=== PATIENT | female | born 1940 | race Caucasian/White ===

== ENCOUNTER → 2019-06-15 10:18 | Outpatient (CLI) | payer MEDICARE, SELFPAY ==
[2019-06-15 09:48] VITALS: BMI 34.2
[2019-06-15 12:38] LABS: ALB/GLOB Ratio 1.2 RATIO (0.9-2.4); AST(SGOT) 30 U/L (15-37); Alanine Aminotransfer ALT/SGPT 31 U/L (13-56); Albumin, Serum 4.1 g/dL (3.2-5.0); Alkaline Phosphatase 112 U/L (45-117); Anion Gap 8 (5-15); BUN 16 mg/dL (7-18); BUN/Creat Ratio 18.4 RATIO (10-20); Calcium,Total 9.3 mg/dL (8.5-10.1); Chloride 104 mmol/L (98-107); Cholesterol 170 mg/dL (200); Creatinine, Serum 0.87 mg/dL (0.55-1.02); EST Glomerular Filtration Rate 67 mL/min (>60); Est Glom Filt Rate - Afr Amer 81 mL/min (>60); Globulin 3.5 g/dL (2.2-4.2); Glucose 142 mg/dL (74-106); High Density Lipoprotein 52 mg/dL; Potassium 4.2 mmol/L (3.5-5.1); Protein, Total 7.6 g/dL (6.4-8.2); Sodium Level 138 mmol/L (136-145); Triglycerides 392 mg/dL; Uric Acid 4.7 mg/dL (2.6-6.0); Very Low Density Lipoprotein 78 mg/dL (5-40)
== END ==
PROVIDERS: Family Provider Family Medicine; PCP Family Medicine; Visit Provider Family Medicine
DX: E11.9 Type 2 diabetes mellitus without complications (principal); E78.5 Hyperlipidemia, unspecified; Z87.39 Personal history of other diseases of the musculoskeletal system and connective tissue
CPT/HCPCS: 36415; 80053; 80061; 84550

== ENCOUNTER → 2019-07-01 11:58 | Outpatient (CLI) | payer MEDICARE, SELFPAY ==
[2019-06-15 09:48] VITALS: BMI 34.2
--- NOTE | 2019-07-01 12:00 | BI_ITS ---
MAMMOGRAPHY - BILATERAL SCREENING 3-D TOMOSYNTHESIS REASON FOR EXAM: Female, 78 years old. BILAT SCREENING - FAM HX OF MOTHER POSSIBLY WITH BREAST CA, MAT COUSIN @ AGE LATE 40''S-50''S, and amp;amp; DAUGHTER @ AGE 57 - NO PREV SURG''S PERTINENT HISTORY: No significant family history. TECHNIQUE: 2-D mammograms and 3-D Tomosynthesis of the breast (s) were performed. CAD was performed. COMPARISON: May 15, 2017. FINDINGS: The breast composition is almost entirely fat. Scattered benign calcifications are seen. No dense spiculated masses or suspicious microcalcifications are identified. No architectural distortion is identified. There is no skin thickening or retraction. There has been no significant change since the prior study. BI/SCREEN MAMM (CAD) W/MARIIA BILAT IMPRESSION: No mammographic signs of malignancy. Routine yearly mammograms recommended. ASSESSMENT CATEGORY: BIRADS Category 1: Negative. A letter regarding these results will be sent to the patient by the facility within 30 days. FOLLOW UP RECOMMENDATION: Yearly follow up mammogram recommended. (A) Approximately 10% of breast cancers are not detected by mammography. A normal mammogram should not delay biopsy of a clinically suspicious abnormality. Electronically Signed: Samuel Garcia MD at 15:16 EST , Service support ,
== END ==
PROVIDERS: Family Provider Family Medicine; PCP Family Medicine; Referring Provider Family Medicine; Visit Provider Family Medicine
DX: Z12.31 Encounter for screening mammogram for malignant neoplasm of breast (principal)
CPT/HCPCS: 77063; 77067

== ENCOUNTER → 2020-10-10 12:03 | Outpatient (CLI) | payer MEDICARE, SELFPAY ==
[2020-10-10 11:20] VITALS: BMI 34.9
[2020-10-10 15:40] LABS: ALB/GLOB Ratio 1.3 RATIO (0.9-2.4); AST(SGOT) 30 U/L (15-37); Alanine Aminotransfer ALT/SGPT 36 U/L (13-56); Albumin, Serum 4.2 g/dL (3.2-5.0); Alkaline Phosphatase 126 U/L (45-117); Anion Gap 3 (5-15); BUN 12 mg/dL (7-18); BUN/Creat Ratio 13.5 RATIO (10-20); Calcium,Total 9.5 mg/dL (8.5-10.1); Chloride 105 mmol/L (98-107); Cholesterol 166 mg/dL (200); Creatinine, Serum 0.89 mg/dL (0.55-1.02); EST Glomerular Filtration Rate 65 mL/min (>60); Est Glom Filt Rate - Afr Amer 79 mL/min (>60); Globulin 3.2 g/dL (2.2-4.2); Glucose 142 mg/dL (74-106); High Density Lipoprotein 50 mg/dL; Potassium 4.4 mmol/L (3.5-5.1); Protein, Total 7.4 g/dL (6.4-8.2); Sodium Level 136 mmol/L (136-145); Triglycerides 397 mg/dL; Very Low Density Lipoprotein 79 mg/dL (5-40)
== END ==
PROVIDERS: PCP Family Medicine; Referring Provider Family Medicine; Visit Provider Family Medicine
DX: E11.9 Type 2 diabetes mellitus without complications (principal)
CPT/HCPCS: 36415; 80053; 80061

== ENCOUNTER 2021-07-22 08:19 | Day surgery (SDC) | payer MEDICARE, SELFPAY ==
[2021-07-22] VITALS (7 sets, daily range): BP systolic 117–134; BP diastolic 60–73; PULSE 62–73; RESP 16; TEMP 36.3–36.8; O2SAT 94–95; BMI 34.4
[2021-07-22] MEDS: Lactated Ringers 1,000 ML 30 ML IV (09:05)
--- NOTE | 2021-07-22 09:30 | COLBX_PTH ---
PATIENT: GARFIELD MADRIGAL LOC: EN U#:[id number] AGE/SX: 80/F ROOM: RE07/22/[address]: Dr. Dez Giraldo DO : 1940 BED: DIS: 07/22/2021 SPEC #: [id number] RECD: 07/22/21 12:32 STATUS: GUERO RESabrina #: [id number] JACOB: 07/22/21 09:[address]: Dez Giraldo DEPT: SURGICAL PATHOLOGY RECD BY: Lydia Munroe ENTERED: 07/22/21 13:17 SP TYPE: COLON BX OTHR DR: Dr. Bony Rivera DO Tissues: A - COLON BIOPSY B - Cecum, NOS C - Cecum, NOS D - COLON BIOPSY E - Cecum, NOS F - Transverse colon G - Descending colon H - Rectum, NOS Procedures: Surgery Specimen Level IV HEADER OPERATION: Colonoscopy with polypectomy and biopsies (MAC) PRE-OP DIAGNOSIS: Rectal bleeding, positive Cologuard, constipation TISSUE SUBMITTED: A - Hepatic flexure polyp, B - Cecum polyp, C - Cecal cap polyp, D - Appendiceal orifice polyp, E - Cecum #2 polyp (snare), F - Transverse colon biopsy, G - Descending colon biopsy, H - Rectum polyp MICROSCOPIC DIAGNOSIS A. Colonic polyp at hepatic flexure, biopsy: Tubular adenoma. B. Cecal polyp, biopsy: Tubular adenoma. C. Cecal cap polyp, biopsy: Polypoid fragments of benign colonic mucosa. See comment. D. Appendiceal orifice polyp, biopsy: Polypoid fragment of benign colonic mucosa.. See comment. E. Cecal polyp #2, biopsy: Fragments of hyperplastic polyp. F. Transverse colon, biopsy: No pathologic change. G. Descending colon, biopsy: Fragments of tubular adenoma. H. Rectal polyp, biopsy: Tubular adenoma. AM:dave 07/23/2021 COMMENT C & D. Neither hyperplastic nor adenomatous change is seen. Clinical correlation is suggested. MICROSCOPIC DESCRIPTION Slides are reviewed. GROSS DESCRIPTION A - Received in fixative is one container labeled with the patient's name and designated polyp at hepatic flexure. The specimen consists of multiple irregular fragments of light brown soft tissue that in aggregate measure 0.8 x 0.3 x 0.2 cm. The specimen is totally submitted in one cassette. B - Received in fixative is one container labeled with the patient's name and designated cecal polyp. The specimen consists of multiple irregular fragments of light brown soft tissue that in aggregate measure 0.7 x 0.2 x 0.1 cm. The specimen is totally submitted in one cassette. C - Received in fixative is one container labeled with the patient's name and designated cecal cap. The specimen consists of two irregular fragments of light brown soft tissue that in aggregate measure 0.7 x 0.3 x 0.1 cm. The specimen is totally submitted in one cassette. D - Received in fixative is one container labeled with the patient's name and designated appendiceal orifice. The specimen consists of one irregular fragment of light brown soft tissue that measures 0.5 x 0.3 x 0.1 cm. The specimen is totally submitted in one cassette. E - Received in fixative is one container labeled with the patient's name and designated cecal polyp #2. The specimen consists of two irregular fragments of light brown soft tissue that in aggregate measure 1 x 1 x 0.2 cm. The specimen is totally submitted in one cassette. F - Received in fixative is one container labeled with the patient's name and designated transverse colon biopsy. The specimen consists of one irregular fragment of light brown soft tissue that measures 0.6 x 0.3 x 0.1 cm. The specimen is totally submitted in one cassette. G - Received in fixative is one container labeled with the patient's name and designated descending colon biopsy. The specimen consists of multiple irregular fragments of light brown soft tissue that in aggregate measure 1.5 x 1 x 0.1 cm. The specimen is totally submitted in one cassette. H - Received in fixative is one container labeled with the patient's name and designated rectal polyp. The specimen consists of multiple irregular fragments of light brown soft tissue that in aggregate measure 1.5 x 0.7 x 0.1 cm. The specimen is totally submitted in one cassette. / AM:rg 07/22/2021 TC:5 CPT: 75865 x8
--- NOTE | 2021-07-22 10:07 | PCM.HP.BLA ---
History and Physical Date of Admission: 07/22/21 80 F who presents to the office today for a positive Cologuard. She also struggles with constipation. She uses a glycerin suppository on a daily basis. She has not tried anything oral to help her have bowel movements. She does not know if she has diverticular disease. Her weight has been stable. She does have some abdominal pain and cramping. However she only gets this when she is constipated. She had been noticing blood on toilet paper during her last visit with PCP. Cologard ordered and returned as positive. PCP noted she has depressive presentation. She did have a colonoscopy in the past. She thinks it was 6 or 7 years ago. She has had 2 colonoscopies in her life and she has had polyps in both colonoscopies. Additional medical history includes asthmatic bronchitis, DMII, hyperlipidemia, gout, arthritis. ROS Const Constitutional: No anorexia, fatigue, fever(s), weight change or sleep problems Eyes Eyes: No change in vision ENT ENT: No abnormal hearing, difficulty swallowing, mouth lesions, tongue swelling or throat swelling Resp Respiratory: No cough or shortness of breath Cardio Cardiology: No chest pain at rest, chest pain with exertion, shortness of breath or dyspnea on exertion Gastro GI: No difficulty swallowing Genitourinary-Female: No difficulty urinating or burning urination Musc Musculoskeletal: No joint pain, joint swelling, muscle weakness or decreased muscle mass Skin Skin: No hair loss in leg, yellowing of the eye, itchy eyes, rash, skin ulcer or skin swelling Neuro Neurology: No abnormal hearing, abnormal movements, confusion, unsteady gait/balance or memory loss Psych Psychiatric: No anxiety, No confusion and No memory loss Endo Endocrine: No fatigue or weight change Aller/Imm Allergy/Immunologic: No itchy eyes, throat swelling or tongue swelling [place]/Lymp Hematologic/Lymphatic: No easy bleeding, easy bruising or enlarged lymph nodes Exam Const General: cooperative and comfortable Nutritional Appearance: average body habitus and well nourished [facility] Head: normal to inspection Ears: hearing grossly normal bilaterally Nose: external nose normal Face and sinus: normal facial exam Mouth: oral mucosae normal Throat: posterior oropharynx normal Eyes General: appearance normal, both eyes and all related structures Neck Neck: normal visual inspection Chest Chest palpation & inspection: normal inspection of the chest and normal palpation of entire chest wall Resp Effort & Inspection: normal respiratory effort Auscultation: Bilateral: Clear to Auscultation Cardio Palpation: normal PMI Rate: regular rate Rhythm: regular rhythm GI Inspection: normal to inspection Auscultation: normal bowel sounds Percussion: normal to percussion Palpation: no hepatosplenomegaly Skin General: no rashes or lesions noted Neuro General: patient alert Extrem General: normal to inspection Psych Affect: normal affect Quality Reporting Tobacco Screening ([facility] 138) Smoking Status: Former smoker Assessment and Plan Assessment and Plan (1) Rectal bleeding: Status: Acute Plan - Dr. Dez Giraldo, DO: The differential diagnosis for rectal bleeding does include anal fissure, stercoral ulcer, hemorrhoidal disease and less likely neoplasia. (2) Positive colorectal cancer screening using Cologuard test: Status: Acute Orders: Orders: Colonoscopy Today Plan - Dr. Dez Giraldo, DO: She will undergo evaluation of the lower GI tract. She was explained alternatives, risk, benefits including not withstanding bleeding, infection, sepsis, perforation, need for emergent surgery . She will have an ASA of 3. (3) Constipation: Status: Acute Plan - Dr. Dez Giraldo, DO: We had a long conversation regarding the types of constipation including anal stenosis particular disease ,slow transit constipation and pelvic floor dysfunction. She was given an [id number] regimen to help her go to the bathroom on a daily basis. Plan Details Other Medications: New: bisacodyl (Bisa-Lax (bisacodyl)) as directed for bowel prep 20 mg (4 x 5 mg) PO ONCE 4 tabs 0RF polyethylene glycol 3350 (Miralax) as directed for bowel prep 17 grams PO DAILY 238 grams 0RF I have re-examined the patient. There are no clinical changes since date of exam.
--- NOTE | 2021-07-22 10:59 | OP.COLON_ITS ---
Patient Name: Daly Arellano Procedure Date: 07/22/2021 10:04 AM Date of : 1940 Age: 80 Procedure: Colonoscopy Indications: Exclusion of adenomatous polyps in the colon Providers: Dez Giraldo DO Medicines: See the Anesthesia note for documentation of the administered medications Patient Profile: Last Colonoscopy: 5 years ago. This is a 80 year old female. Refer to note in patient chart for documentation of history and physical. Complications: No immediate complications. Procedure: Pre-Anesthesia Assessment: - Prior to the procedure, a History and Physical was performed, and patient medications and allergies were reviewed. The risks and benefits of the procedure and the sedation options and risks were discussed with the patient. All questions were answered and informed consent was obtained. Patient identification and proposed procedure were verified by the physician in the pre-procedure area. Mental Status Examination: alert and oriented. Airway Examination: normal oropharyngeal airway and neck mobility. Respiratory Examination: clear to auscultation. CV Examination: normal. Prophylactic Antibiotics: The patient does not require prophylactic antibiotics. Prior Anticoagulants: The patient has taken no previous anticoagulant or antiplatelet agents. ASA Grade Assessment: II - A patient with mild systemic disease. After reviewing the risks and benefits, the patient was deemed in satisfactory condition to undergo the procedure. The anesthesia plan was to use moderate sedation / analgesia (conscious sedation). Immediately prior to administration of medications, the patient was re-assessed for adequacy to receive sedatives. The heart rate, respiratory rate, oxygen saturations, blood pressure, adequacy of pulmonary ventilation, and response to care were monitored throughout the procedure. The physical status of the patient was re-assessed after the procedure. After I obtained informed consent, the scope was passed under direct vision. Throughout the procedure, the patient's blood pressure, pulse, and oxygen saturations were monitored continuously. The Colonoscope was introduced through the anus and advanced to the cecum, identified by appendiceal orifice and ileocecal valve. The colonoscopy was performed without difficulty. The patient tolerated the procedure well. The quality of the bowel preparation was good. Moderate Sedation: Moderate (conscious) sedation was administered by the endoscopy nurse and supervised by the endoscopist. The following parameters were monitored: oxygen saturation, heart rate, blood pressure, and response to care. Total physician intraservice time was 15 minutes. Scope In: 10:13:49 AM Scope Withdrawal Time 0 hours 28 minutes 34 seconds Scope Out: 10:52:31 AM Total Procedure Duration Time 0 hours 38 minutes 42 seconds Findings: Multiple small and large-mouthed diverticula were found in the recto-sigmoid colon, sigmoid colon and descending colon. There was no evidence of diverticular bleeding. Seven sessile polyps were found in the rectum, descending colon, transverse colon, hepatic flexure, ascending colon, cecum and appendiceal orifice. The polyps were 1 to 2 mm in size. These polyps were removed with a hot snare. Resection and retrieval were complete. Verification of patient identification for the specimen was done. Estimated blood loss was minimal. An area of moderately congested mucosa was found at the hepatic flexure. Biopsies were taken with a cold forceps for histology. Verification of patient identification for the specimen was done. Estimated blood loss was minimal. Hemorrhoids were found on perianal exam. The exam was otherwise without abnormality on direct and retroflexion views. Impression: - Diverticulosis in the recto-sigmoid colon, in the sigmoid colon and in the descending colon. There was no evidence of diverticular bleeding. - Seven 1 to 2 mm polyps (adenomatous) in the rectum, in the descending colon, in the transverse colon, at the hepatic flexure, in the ascending colon, in the cecum and at the appendiceal orifice, removed with a hot snare. Resected and retrieved. - Congested mucosa at the hepatic flexure. Biopsied. - Hemorrhoids found on perianal exam. - The examination was otherwise normal on direct and retroflexion views. Recommendation: - Discharge patient to home. - Resume previous diet. - Continue present medications. - Await pathology results. - Repeat colonoscopy in 1 year for surveillance of multiple polyps. - Return to GI office. Procedure Code(s): --- Professional --- 14088, Colonoscopy, flexible; with removal of tumor(s), polyp(s), or other lesion(s) by snare technique 61268, 59, Colonoscopy, flexible; with biopsy, single or multiple 73803, 59, Moderate sedation services provided by the same physician or other qualified health chiropractic care performing the diagnostic or therapeutic service that the sedation supports, requiring the presence of an independent trained observer to assist in the monitoring of the patient's level of consciousness and physiological status; initial 15 minutes of intraservice time, patient age 5 years or older CPT copyright 2017 [employer]. All rights reserved. The codes documented in this report are preliminary and upon fur sorter review may be revised to meet current compliance requirements. Dez Giraldo DO 07/22/2021 10:59:09 AM This report has been signed electronically. Number of Addenda: 1 Note Initiated On: 07/22/2021 10:04 AM Addendum Number: 1 Addendum Date: 03/06/2022 6:22:56 AM MAC was used instead of moderate sedation for the patient. Dez Giraldo DO 03/06/2022 6:23:00 AM This report has been signed electronically.
--- NOTE | 2021-07-22 10:59 | OP.CCLET_ITS ---
03/06/2022 Bony Rivera Re : Colonoscopy procedure for Daly Arellano Dear Dr. Rivera This procedure was performed on Thursday, July 22, 2021. My impressions and recommendations are as follows: Impressions : - Diverticulosis in the recto-sigmoid colon, in the sigmoid colon and in the descending colon. There was no evidence of diverticular bleeding. - Seven 1 to 2 mm polyps (adenomatous) in the rectum, in the descending colon, in the transverse colon, at the hepatic flexure, in the ascending colon, in the cecum and at the appendiceal orifice, removed with a hot snare. Resected and retrieved. - Congested mucosa at the hepatic flexure. Biopsied. - Hemorrhoids found on perianal exam. - The examination was otherwise normal on direct and retroflexion views. Recommendations : - Discharge patient to home. - Resume previous diet. - Continue present medications. - Await pathology results. - Repeat colonoscopy in 1 year for surveillance of multiple polyps. - Return to GI office. My findings are described in the full procedure note, which is enclosed. If I can be of further assistance, please feel free to contact me at . Sincerely, Dez Giraldo, 07/22/2021 10:59:09 AM This report has been signed electronically.
== END 2021-07-22 23:59 | disposition home or self-care (01) ==
LOC: EN 08:27 → AC 08:27
PROVIDERS: PCP Family Medicine; Referring Provider Family Medicine; Visit Provider Internal Medicine Gastroenterology
PROC: 0DJD8ZZ Inspection of Lower Intestinal Tract, Via Natural or Artificial Opening Endoscopic (ICD-10-PCS; CPT 45378; principal; 2021-07-22 09:25)
DX: K62.5 Hemorrhage of anus and rectum (principal); E11.9 Type 2 diabetes mellitus without complications; K57.30 Diverticulosis of large intestine without perforation or abscess without bleeding; D12.4 Benign neoplasm of descending colon; D12.0 Benign neoplasm of cecum; D12.2 Benign neoplasm of ascending colon; K64.9 Unspecified hemorrhoids; D12.8 Benign neoplasm of rectum; D12.3 Benign neoplasm of transverse colon; R19.5 Other fecal abnormalities; K59.00 Constipation, unspecified; J45.909 Unspecified asthma, uncomplicated; E78.00 Pure hypercholesterolemia, unspecified; M19.90 Unspecified osteoarthritis, unspecified site; M10.9 Gout, unspecified; Z79.84 Long term (current) use of oral hypoglycemic drugs; Z79.899 Other long term (current) drug therapy; Z87.891 Personal history of nicotine dependence
CPT/HCPCS: 45385; 45380; 88305; J7120; J2405

== ENCOUNTER → 2021-11-06 | Outpatient (CLI) | payer MEDICARE, SELFPAY ==
[2021-11-06 15:35] LABS: ALB/GLOB Ratio 1.1 RATIO (0.9-2.4); AST(SGOT) 45 U/L (15-37); Alanine Aminotransfer ALT/SGPT 37 U/L (13-56); Albumin, Serum 4.1 g/dL (3.2-5.0); Alkaline Phosphatase 105 U/L (45-117); Anion Gap 8 (5-15); BUN 13 mg/dL (7-18); Calcium,Total 10.4 mg/dL (8.5-10.1); Chloride 102 mmol/L (98-107); Cholesterol 132 mg/dL (200); EST Glomerular Filtration Rate 57 mL/min (>60); Est Glom Filt Rate - Afr Amer 69 mL/min (>60); Globulin 3.7 g/dL (2.2-4.2); Glucose 224 mg/dL (74-106); High Density Lipoprotein 42 mg/dL; Potassium 4.2 mmol/L (3.5-5.1); Protein, Total 7.8 g/dL (6.4-8.2); Sodium Level 135 mmol/L (136-145); Triglycerides 310 mg/dL; Very Low Density Lipoprotein 62 mg/dL (5-40)
== END | disposition home or self-care (01) ==
LOC: BIMLAB 11:56
PROVIDERS: PCP Family Medicine; Referring Provider Family Medicine; Visit Provider Family Medicine
DX: E78.5 Hyperlipidemia, unspecified (principal); E11.9 Type 2 diabetes mellitus without complications
CPT/HCPCS: 36415; 80053; 80061

== ENCOUNTER → 2022-01-03 | Outpatient (CLI) | payer MEDICARE, SELFPAY ==
--- NOTE | 2022-01-03 09:48 | RAD_ITS ---
STUDY: X-RAY - ESOPHAGUS (BARIUM SWALLOW) with FLUOROSCOPY REASON FOR EXAM: Female, 81 years old. Food sticking as distal esophagus TECHNIQUE: 22 view(s) of the esophagus were obtained following swallowing of barium. FLUOROSCOPY TIME (if supplied): (29 seconds) minutes/seconds COMPARISON: None. FINDINGS: There is no demonstrated esophageal foreign body. There is no demonstrated stricture or mucosal abnormality. Circumferential narrowing of the distal esophagus at the level of the gastroesophageal junction. The patient ingest a 12 mm tablet of barium without any difficulty. There is atherosclerotic calcification of the aortic arch with tortuosity of the descending aorta. Normal visualized pulmonary parenchyma. There are diffuse degenerative changes of the visualized thoracic spine. RAD/Esophagus Dual Contrast IMPRESSION: Circumferential narrowing of the distal esophagus at the level the gastroesophageal junction. The patient ingested a 12 mm tablet of barium without any difficulty. Electronically Signed: Kostas Stack MD at 10:48 EDT ,
== END | disposition home or self-care (01) ==
PROVIDERS: PCP Family Medicine; Referring Provider Nurse Practitioner Adult Health; Visit Provider Nurse Practitioner Adult Health
DX: R13.10 Dysphagia, unspecified (principal)
CPT/HCPCS: 74221

== ENCOUNTER → 2022-11-20 | Outpatient (CLI) | payer MEDICARE, SELFPAY ==
[2022-11-20 18:20] LABS: ALB/GLOB Ratio 1.1 RATIO (0.9-2.4); AST(SGOT) 22 U/L (15-37); Alanine Aminotransfer ALT/SGPT 30 U/L (13-56); Alkaline Phosphatase 98 U/L (45-117); Anion Gap 11 (5-15); BUN 18 mg/dL (7-18); BUN/Creat Ratio 21.3 RATIO (10-20); Calcium,Total 9.9 mg/dL (8.5-10.1); Chloride 104 mmol/L (98-107); Cholesterol 149 mg/dL (200); Creatinine, Serum 0.84 mg/dL (0.55-1.02); EST Glomerular Filtration Rate 69 mL/min (>60); Est Glom Filt Rate - Afr Amer 83 mL/min (>60); Globulin 3.5 g/dL (2.2-4.2); Glucose 131 mg/dL (74-106); High Density Lipoprotein 38 mg/dL; Protein, Total 7.5 g/dL (6.4-8.2); Sodium Level 140 mmol/L (136-145); Triglycerides 555 mg/dL
== END | disposition home or self-care (01) ==
LOC: BIMLAB 16:27
PROVIDERS: PCP Family Medicine; Referring Provider Family Medicine; Visit Provider Family Medicine
DX: E11.9 Type 2 diabetes mellitus without complications (principal); E78.5 Hyperlipidemia, unspecified
CPT/HCPCS: 36415; 80053; 80061

== ENCOUNTER → 2023-12-15 | Outpatient (CLI) | payer MEDICARE, SELFPAY ==
[2023-12-15 17:03] LABS: ALB/GLOB Ratio 1.2 RATIO (0.9-2.4); AST(SGOT) 23 U/L (15-37); Alanine Aminotransfer ALT/SGPT 26 U/L (13-56); Albumin, Serum 4.1 g/dL (3.2-5.0); Alkaline Phosphatase 91 U/L (45-117); Anion Gap 13 (5-15); BUN 17 mg/dL (7-18); BUN/Creat Ratio 23.9 RATIO (10-20); Calcium,Total 10.5 mg/dL (8.5-10.1); Chloride 105 mmol/L (98-107); Cholesterol 151 mg/dL (200); Creatinine, Serum 0.71 mg/dL (0.55-1.02); EST Glomerular Filtration Rate 84 mL/min (>60); Est Glom Filt Rate - Afr Amer 101 mL/min (>60); Globulin 3.3 g/dL (2.2-4.2); Glucose 104 mg/dL (74-106); High Density Lipoprotein 48 mg/dL; Potassium 3.9 mmol/L (3.5-5.1); Protein, Total 7.4 g/dL (6.4-8.2); Sodium Level 140 mmol/L (136-145); Triglycerides 144 mg/dL; Very Low Density Lipoprotein 29 mg/dL (5-40)
== END | disposition home or self-care (01) ==
LOC: BIMLAB 14:19
PROVIDERS: PCP Family Medicine; Referring Provider Family Medicine; Visit Provider Family Medicine
DX: E11.9 Type 2 diabetes mellitus without complications (principal); E78.5 Hyperlipidemia, unspecified
CPT/HCPCS: 36415; 80053; 80061

== ENCOUNTER → 2024-01-06 | Outpatient (CLI) | payer MEDICARE, SELFPAY ==
--- NOTE | 2024-01-06 11:24 | NEURO ---
NCS and/or EMG Patient Report Ordering Doctor: Bony Rivera DATE OF SERVICE: 01/06/24 Daly presents for electrodiagnostic testing of the left upper limb. She has numbness and tingling in the left hand. Electrodiagnostic findings: Left median motor nerve demonstrates prolonged latency with normal amplitude and reduced conduction velocity. Left ulnar motor response is within normal limits. Absent left median sensory latency at the wrist and palm. Normal ulnar radial sensory responses. Normal left median and ulnar F?waves. Needle EMG testing was performed the left upper limb. All muscles tested showed no evidence of denervation with normal motor unit action potentials. Electrodiagnostic impression: This is an abnormal study in the left upper limb 1. Electrodiagnostic findings suggestive of left-sided median mononeuropathy. This is consistent with a severe left carpal tunnel syndrome. Multi Select Codes Neurology Neurology Interp Codes: 69973-63 Musc test done w/n test comp (interp) and 24144-45 Nrv cndj test 7-8 studies (interp)
== END | disposition home or self-care (01) ==
LOC: PSN 09:57
PROVIDERS: PCP Family Medicine; Referring Provider Family Medicine; Visit Provider Family Medicine
DX: G56.02 Carpal tunnel syndrome, left upper limb (principal)
CPT/HCPCS: 95886; 95910

== ENCOUNTER → 2024-02-03 | Outpatient (CLI) | payer MEDICARE, SELFPAY ==
[2024-02-03 17:00] LABS: Anion Gap 8 (5-15); BUN 16 mg/dL (7-18); BUN/Creat Ratio 20.6 RATIO (10-20); Calcium,Total 10.8 mg/dL (8.5-10.1); Chloride 106 mmol/L (98-107); Creatinine, Serum 0.78 mg/dL (0.55-1.02); EST Glomerular Filtration Rate 76 mL/min (>60); Est Glom Filt Rate - Afr Amer 92 mL/min (>60); Glucose 110 mg/dL (74-106); Hemoglobin A1c 5.4 % (3.8-5.6); Potassium 4.3 mmol/L (3.5-5.1); Sodium Level 140 mmol/L (136-145)
== END | disposition home or self-care (01) ==
LOC: BIMLAB 14:56
PROVIDERS: PCP Family Medicine; Referring Provider Family Medicine; Visit Provider Family Medicine
DX: E11.9 Type 2 diabetes mellitus without complications (principal)
CPT/HCPCS: 36415; 80048; 83036

== ENCOUNTER 2024-02-10 07:48 | Day surgery (SDC) | payer MEDICARE, SELFPAY ==
[2024-02-10] VITALS (8 sets, daily range): BP systolic 108–134; BP diastolic 58–73; PULSE 50–78; RESP 16–18; TEMP 36.2–36.9; O2SAT 92–98; BMI 26.6
[2024-02-10] MEDS: Lactated Ringers 1,000 ML 15 ML IV (08:20)
--- NOTE | 2024-02-10 08:23 | PCM.PRE.AN2 ---
ASA Classification* ASA Classification ASA Classification: 2 Assessment & Plan Anesthesia* Anesthesia Assessment Anesthesia Assessment: Discussed sedation and/or anesthesia options, risks, benefits, and alternatives with patient/parents/legal guardian/POA. Questions invited. The patient/parents/legal guardian/POA seems to understand and agrees to proceed with anesthesia plan. Reviewed the physical assessment, medical history, allergy history and patient home medications list prior to surgery/procedure/anesthetic and documented any changes. Performed airway and anesthesia risk assessments. Anesthesia Type Anesthesia Type: MAC Anesthesia Focused Assessment* Temperature: 97.2 F Pulse Rate: 54 Blood Pressure: 124/70 Respiratory Rate: 16 Pulse Ox: 98 Airway Assessment Mouth opens: 2 cm Mallampati Score: II Focused Labs Anesthesia Preop lab: CBC CHEMISTRY Potassium 4.3 mmol/L (3.5-5.1) 02/03/24 14:57 Sodium 140 mmol/L (136-145) 02/03/24 14:57 BUN 16 mg/dL (7-18) 02/03/24 14:57 Creatinine 0.78 mg/dL (0.55-1.02) 02/03/24 14:57 Glucose 110 mg/dL (74-106) H 02/03/24 14:57 COAG Pre-Assessment Diagnosis/Proposed Procedure Planned Operative Procedure(s): (L) Left Open Endoscopic Carpal Tunnel Release Anesthesia History Anesthesia History - self rising flour mixer: Anesthesia History - self rising flour mixer Hx Hospitalization No 01/29/24 10:24 Any Problems With Anesthesia No 01/29/24 10:24 Cholinesterase deficiency No 01/29/24 10:24 You/Your Family Experience No 01/29/24 10:24 fever (hyperthermia) with Relationship Recent Exposure to Contagious No 02/10/24 08:13 Disease Does patient have nerve No 01/29/24 10:24 stimulator Patient instructed to have device shut off --Does patient have Pacemaker No 02/10/24 08:13 or ICD? When Was Last Pacemaker Check QUESTION #4 FULL TEXT: You/Your Family Experience fever (hyperthermia) with Anesthesia Last Oral Intake Last Oral intake: Last Oral Intake NPO since 22:00 02/10/24 08:13 Meds taken in AM with sips of water? Meds patient instructed to take am of surgery PONV PONV - self rising flour mixer: PONV - self rising flour mixer Female Yes 01/29/24 10:24 HX of Motion Sickness No 01/29/24 10:24 HX of N/V After Surgery No 01/29/24 10:24 Non-Smoker Yes 01/29/24 10:24 Duration of Surgery greater No 01/29/24 10:24 than 60 minutes Number of Risk Factors 2 01/29/24 10:24 PONV Score Moderate Risk 01/29/24 10:24 Height & Weight Height & Weight: Anesthesia: Height & Weight Height 5 ft 02/10/24 08:13 Weight: 62 kg 02/10/24 08:13 Body Mass Index (BMI) 26.6 02/10/24 08:13 Respiratory Assessment Respiratory Assessment - self rising flour mixer: Respiratory Tract Infection Hx - self rising flour mixer Hx Respiratory Tract Infection No 01/29/24 10:24 STOP Sleep Apnea STOP Sleep Apnea - self rising flour mixer: STOP Sleep Apnea - self rising flour mixer Hx Hypertension No 01/29/24 10:24 Hx Sleep Apnea No 01/29/24 10:24 CPAP BIPAP Do you snore loudly (louder Yes 01/29/24 10:24 than talking or can be heard Do you often feel tired/ No 01/29/24 10:24 fatigued/ sleepy during daytime? Has anyone observed you stop Yes 01/29/24 10:24 breathing during sleep? STOP Results Positive 01/29/24 10:24 QUESTION #5 FULL TEXT : Do you snore loudly (louder than talking or can be heard through closed doors)? 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 Specify any problems Hx of Preganancy in last 3 No 01/29/24 10:24 Months Nurse Filling Out Transfusion VCHRISTIN 01/29/24 10:24 & Questions: Date: 01/29/24 01/29/24 10:24 Time: 10:25 01/29/24 10:24 Patient unable to answer at this time (ie. confused, unrespo /Reproduction History /Reproductive History - self rising flour mixer: /Reproductive Hx- self rising flour mixer Hx Now No 01/29/24 10:24 Gestational Age (in weeks): EDC: Hx Hx Para Hx Section SAB No 01/29/24 10:24 Active Medications Active Medications: Current Medications Generic Name Dose Route Start Last Admin Trade Name Freq PRN Reason Stop Dose Admin Cefazolin Sodium 2 gm/ Sodium 110 mls @ 150 mls/hr 02/10/24 09:30 Chloride IV 02/10/24 10:13 PREOP ONE Lactated Ringer's 1,000 mls @ 15 mls/hr 02/10/24 08:00 02/10/24 08:20 IV 15 mls/hr .Q48H MENDEZ Administration PFSH Medical History Chronic cough Former smoker Restless legs Shingles Ambulates with cane Non-smoker Wears glasses Post-menopausal Anxiety Diabetes Gout High cholesterol Former smoker Asthma Leg cramps Constipation Seasonal allergies Back pain Type 2 diabetes mellitus Hyperlipemia History of gout Arthritis Home Medications ?Medication ?Instructions ?Recorded ?Last Taken ?Type disability placard #1 ea 02/19/22 Unknown Rx walker with wheels #1 ea 05/13/22 Unknown Rx metformin 500 mg tablet,extended 500 mg PO BID #180 tabs 04/14/23 Unknown Rx release 24 hr allopurinol 300 mg tablet 300 mg PO QDAY #90 tabs 06/18/23 Unknown Rx rosuvastatin 20 mg tablet 20 mg PO QDAY #90 tabs 06/18/23 Unknown Rx azelastine 137 mcg (0.1 %) nasal 1 spray intranasal BID #90 mL 07/03/23 Unknown Rx spray escitalopram oxalate 20 mg tablet See Rx Instructions .Route 11/10/23 Unknown Rx .COMPLEX #90 tabs loteprednol etabonate 0.2 % eye 1 drp RIGHT EYE TID 01/29/24 Unknown History drops,suspension valacyclovir 1 gram tablet 1,000 mg PO DAILY 01/29/24 Unknown History fluticasone fur. 200 mcg-umeclid 1 inh inhalation DAILY 3 months 02/04/24 Unknown Rx 62.5 mcg-vilant 25 mcg #60 ea inhalat.powder (Trelegy Ellipta) Allergy/AdvReac Type Severity Reaction Status Date / Time aspirin Allergy Unknown unknown Verified 02/10/24 08:11 Family History Sister Cancer lung Seizures COPD (chronic obstructive pulmonary disease) Mother Breast cancer COPD (chronic obstructive pulmonary disease) Surgical History Hx of colonoscopy History of tubal ligation History of tonsillectomy History of eye surgery History of foot surgery tuberler elongate History of carpal tunnel release Social History Smoking Status: Former smoker alcohol intake: current alcohol intake frequency: 0-2 drinks per day substance use type: does not use what type of physical activity do you participate in: none Review of Systems (Anesthesia) ROS Narrative System reviewed and no additional complaints, except as documented.
[2024-02-10 09:04] LABS: Bedside Glucose 113 mg/dL (74-106)
--- NOTE | 2024-02-10 10:51 | HP.PCM_ITS ---
HPI - General HPI Narrative DALY MADRIGAL, is a 83 F who presents for left endoscopic carpal tunnel release. No changes to history and physical exam. Patient wishes to proceed. Left wrist marked. Risks alternatives benefits discussed as well as postoperative pain medication [id number] medications and postoperative instructions given. The patient understands no further questions or concerns. MR#: [id number] Acct: [id number] Name: DALY MADRIGAL Rep #: [id number] : 1940 Provider: Dr. Kenji Mclaughlin MD Age/Sex: 83/F Location: [facility] Status: Signed Intake Vital Signs 12/14/2412:31 01/10/2410:53 Height 5 ft 1 in 5 ft 1 in Weight: 142 lb BMI 26.8 BP 126/70 H Blood Pressure Location Lt brachial Position Sitting Respiration 16 Pulse 70 Pulse Source Monitor Temp 97.0 F L Temp Source Temporal Pulse Oximetry (%) 98 Oxygen Delivery Method room air Intake Visit Reasons: LEFT WRIST Chief Complaint: Left Wrist Accompanied by: Is patient in pain?: Yes Allergies aspirin Allergy (Unknown, Verified 01/19/24 13:22) unknown Medications ?Medication ?Instructions ?Recorded ?Confirmed ?Type disability placard #1 ea 02/19/22 01/19/24 Rx walker with wheels #1 ea 05/13/22 01/19/24 Rx metformin 500 mg tablet,extended 500 mg PO BID #180 tabs 04/14/23 01/19/24 Rx release 24 hr allopurinol 300 mg tablet 300 mg PO QDAY #90 tabs 06/18/23 01/19/24 Rx rosuvastatin 20 mg tablet 20 mg PO QDAY #90 tabs 06/18/23 01/19/24 Rx azelastine 137 mcg (0.1 %) nasal 1 spray intranasal BID #90 mL 07/03/23 01/19/24 Rx spray fluticasone fur. 200 mcg-umeclid 1 inh inhalation DAILY 3 months 10/06/23 01/19/24 Rx 62.5 mcg-vilant 25 mcg #60 ea inhalat.powder (Trelegy Ellipta) escitalopram oxalate 20 mg tablet See Rx Instructions .Route 11/10/23 01/19/24 Rx .COMPLEX #90 tabs nystatin-triamcinolone 100,000 1 applic topical BID #15 grams 12/15/23 01/19/24 Rx unit/g-0.1 % topical cream Have you fallen in the past year?: Yes PFSH Medical History Shingles Ambulates with cane Non-smoker Wears glasses Post-menopausal Anxiety Diabetes Gout High cholesterol Former smoker Asthma Leg cramps Constipation Seasonal allergies Back pain Type 2 diabetes mellitus Hyperlipemia History of gout Arthritis Surgical History History of tubal ligation History of tonsillectomy History of eye surgery History of foot surgery tuberler elongate History of carpal tunnel release Family History Sister Cancer lung Seizures COPD (chronic obstructive pulmonary disease)Mother Breast cancer COPD (chronic obstructive pulmonary disease) Social History Smoking Status: Former smoker alcohol intake: current alcohol intake frequency: 0-2 drinks per day substance use type: does not use what type of physical activity do you participate in: none HPI LEFT WRIST Details: This documentation accurately reflects the service provided and the decisions made by me, Dr. Kenji Mclaughlin MD 01/19/24 1316. Part of today?s visit was documented by [ ], acting as scribe. DALY MADRIGAL is a 83 year old F here today for L carpal tunnel syndrome. Has NCS already, desiring surgery. thumb index and middle finger, at least a year, all the time. no night splinting. no nsaids or night time bracing. weakness - yes. no flick sign, holds it up. RHD. likes to read. horse shoes, baseballs, grand children. Ortho Exam General General: Yes no acute distress Neurologic: Yes alert and Yes oriented x3 Psychologic: Yes reasonable and appropriate Right Wrist/Hand Skin/Wound: No Swelling and No Ecchymosis Left Wrist/Hand Skin/Wound: Yes CDI, No Swelling, No Ecchymosis, Yes capillary refill normal and No erythema Left Wrist: Yes ROM-Extension 0-60, Yes ROM-Flexion 0-80, Yes ROM-Pronation 0- 80, Yes ROM-Supination 0-90, Yes Durken's Test and Yes Phalen's; No Michelle's Test, No Palpable Nodule, No Tender to palpate triangular fibrocartilage complex, No Distal radioulnar joint, No CMC Grind, No tender to palpate 1st dorsal compartment, No tender to palpate carpometacarpal joint, No Thenar Atrophy and No Hypothenar Atrophy Motor: EPL: 5, FDP-2: 5, 1st Dorsal Interosseous: 5 and APB: 5 Sensation: Radial: I, Ulnar: I and Median: D WRIST: Negative Tinel's sign and compression test at the elbow. Positive Tinel's and compression test at the wrist. Negative Spurling's test. Supplemental Info [facility]monary Services/Neurology [address] [place] [address] MR#: [id number] Acct: [id number] Name: DALY MADRIGAL NCS or EMG Patient Report Ordering Doctor: Bony Rivera DATE OF SERVICE: 01/06/24 Daly presents for electrodiagnostic testing of the left upper limb. She has numbness and tingling in the left hand. Electrodiagnostic findings: Left median motor nerve demonstrates prolonged latency with normal amplitude and reduced conduction velocity. Left ulnar motor response is within normal limits. Absent left median sensory latency at the wrist and palm. Normal ulnar radial sensory responses. Normal left median and ulnar F?waves. Needle EMG testing was performed the left upper limb. All muscles tested showed no evidence of denervation with normal motor unit action potentials. Electrodiagnostic impression: This is an abnormal study in the left upper limb 1. Electrodiagnostic findings suggestive of left-sided median mononeuropathy. This is consistent with a severe left carpal tunnel syndrome. Multi Select Codes Neurology Neurology Interp Codes: 17218-23 Musc test done w/n test comp (interp) and 12821-05 Nrv cndj test 7-8 studies (interp) Coding Level of Care Code Off vis,est,level 4 Diagnoses Carpal tunnel syndrome of left wrist G56.02 Assessment and Plan Assessment and Plan (1) Carpal tunnel syndrome of left wrist: Status: Acute Plan: 83 yr F with L side CTS. Electrodiagnostic findings suggestive of left-sided median mononeuropathy. This is consistent with a severe left carpal tunnel syndrome. Patient counseled on diagnosis prognosis different treatment options available for this including but not limited to rest ice anti-inflammatories active modifications physical therapy nerve gliding exercises cortisone injections nighttime splinting as well as open or endoscopic carpal tunnel release. Patient counseled on the pros and cons risk benefits of each of these things. Certainly this can get worse or more permanent with time although this is already severe been going on for years that in of itself I can make the problem difficult or more unreliable to treat with surgery especially but the patient is still interested to go ahead with a more definitive surgical solution. Recovery from surgery about 6 weeks before any sort of heavy lifting or gripping. Endoscopic may have slightly higher risk of complications or incomplete release but typically quicker clinical recovery and the overall rate of complications is quite low for this 1% or less infection and other complications. The patient understands wished to go ahead with left endoscopic carpal tunnel release. Signed the consent for surgery as well as possible need for blood products understands no further questions or concerns. We will get a clearance and check hg a1c prior to proceeding. Pros and cons risks and benefits were discussed with the patient including but not limited to infection, pain, stiffness, bleeding, damage to surrounding structures, neurovascular injury, recurrence or retear, failure or wear of hardware or fixation, instability, fracture, deep vein thrombosis and pulmonary embolism, anesthetic risks, , patient dissatisfaction, need for further surgery and other risks. Patient understood and wished to proceed with surgery, and signed the informed consent documentation. FORMERLY [facility], [facility]1983 Medical History Chronic cough Former smoker Restless legs Shingles Ambulates with cane Non-smoker Wears glasses Post-menopausal Anxiety Diabetes Gout High cholesterol Former smoker Asthma Leg cramps Constipation Seasonal allergies Back pain Type 2 diabetes mellitus Hyperlipemia History of gout Arthritis Home Medications ?Medication ?Instructions ?Recorded ?Last Taken ?Type disability placard #1 ea 02/19/22 Unknown Rx walker with wheels #1 ea 05/13/22 Unknown Rx metformin 500 mg tablet,extended 500 mg PO BID #180 tabs 04/14/23 Unknown Rx release 24 hr allopurinol 300 mg tablet 300 mg PO QDAY #90 tabs 06/18/23 Unknown Rx rosuvastatin 20 mg tablet 20 mg PO QDAY #90 tabs 06/18/23 Unknown Rx azelastine 137 mcg (0.1 %) nasal 1 spray intranasal BID #90 mL 07/03/23 Unknown Rx spray escitalopram oxalate 20 mg tablet See Rx Instructions .Route 11/10/23 Unknown Rx .COMPLEX #90 tabs loteprednol etabonate 0.2 % eye 1 drp RIGHT EYE TID 01/29/24 Unknown History drops,suspension valacyclovir 1 gram tablet 1,000 mg PO DAILY 01/29/24 Unknown History fluticasone fur. 200 mcg-umeclid 1 inh inhalation DAILY 3 months 02/04/24 Unknown Rx 62.5 mcg-vilant 25 mcg #60 ea inhalat.powder (Trelegy Ellipta) Allergy/AdvReac Type Severity Reaction Status Date / Time aspirin Allergy Unknown unknown Verified 02/10/24 08:11 Family History Sister Cancer lung Seizures COPD (chronic obstructive pulmonary disease) Mother Breast cancer COPD (chronic obstructive pulmonary disease) Surgical History Hx of colonoscopy History of tubal ligation History of tonsillectomy History of eye surgery History of foot surgery tuberler elongate History of carpal tunnel release Social History Smoking Status: Former smoker alcohol intake: current alcohol intake frequency: 0-2 drinks per day substance use type: does not use what type of physical activity do you participate in: none Vital Signs Vital Signs Vital Signs: 02/10/24 08:13 02/10/24 08:13 02/10/24 08:23 Temperature 97.2 F L 97.2 F L Temperature Source Temporal Pulse Rate 54 L 54 L Respiratory Rate 16 16 Respiratory Pattern Normal Blood Pressure 124/70 H 124/70 H Blood Pressure Mean 88 Blood Pressure Source Monitor Blood Pressure Position Semi-Fowlers Blood Pressure Location Left Arm Pulse Ox 98 98 Oxygen Delivery Method Room Air Weight Weight: 136 lb 10.986 oz Body Mass Index (BMI) 26.6 Results Lab / Micro Data Labs: Laboratory Results - last 24 hr 02/10/24 08:14: POC Glucose 113 H
[2024-02-10] MEDS: Cefazolin 2 GM in 0.9% Normal Saline (100mL Bag) 100 ML IV (11:08)
[2024-02-10] MEDS: Bupivacaine 0.25% 30 ML Vial (11:22)
--- NOTE | 2024-02-10 11:43 | OP.PCM_ITS ---
Problems Associated Problem List Diagnoses (1) Carpal tunnel syndrome of left wrist: Report of Operation Date of Procedure: 02/10/24 Pre-Operative Diagnosis: L carpal tunnel syndrome Post-Operative Diagnosis: same Surgery/Procedure Performed:: L endoscopic carpal tunnel release Surgeon: Kenji Mclaughlin Type of Anesthesia: Local and MAC Anesthesiologist: Sumeet Unger Estimated Blood Loss (mL): 5 Description of Procedure: Patient was brought to the operating room theater.? The patient was administered 2g iv ancef prior to the start of the procedure.? Placed supine on the operating room table.? Anesthesia induced.? SCDs on the legs.? Tourniquet applied to left upper operative extremity, appropriately padded. Arm table used. Operative extremity prepped and draped in the usual sterile fashion with chlorhexidine- based prep solution allowing over 3 minutes drying time prior to draping.? Preop erative timeout performed to confirm the site patient and the surgery. I used the [facility] endoscopic carpal tunnel kit / technique. 4 cc 0.25% bupivicaine at incision site. ? Tourniquet up at 250mmg. I made a transverse 2 cm incision in line with the? transverse wrist crease.? This was in line with the fourth digit.? I carried the dissection down through skin and subcutaneous tissue achieved meticulous hemostasis. Just ulnar to palmaris tendon.? I incised the antebrachial fascia.? I passed sequential dilators into the carpal tunnel along the radial border of the Guyon's canal aiming for the fourth digit with the hand in extension. I used a synovial elevator to identify the transverse fibers of the transverse carpal tunnel ligament.? Passed the scope into the carpal tunnel. Once I had identified the full proximal and distal extent of the ligament I fully released the ligament under direct visualization by deploying the blade and slowly withdrawing the scope made sequential passes until I no longer felt tension as well as the entire extent of the ligament was released under direct visualization.? Sounded the tunnel with carr tenotomy scissors, complete release, no bands. Pictures taken and saved before and after release. Slight proximal release of fascia. Tourniquet let down. Wound thoroughly irrigated.?Meticulous hemostasis achieved.? Incisions closed with 3-0 ethilon for the skin.?Skin was cleaned and dried. adaptic and 4x4 gauze and yvonne wrap. Patient woken up,? transferred off the operating room table and taken to postanesthetic care unit in stable condition. All sponge needle instrument counts were correct no complications.? Plan for the patient to be discharged home according to day surgery criteria when they are comfortable. Follow-up in the office in 2 days time. Gentle ROM hand and elbow no heavy lifting. cpt 66007 Complications none Admit VTE Documentation VTE Present on Admission: No VTE Mechan Device Prophylaxis: SCD's VTE Pharm Prophylaxis ordered?: No Reason prophylaxis not ordered:: Treatment Not Indicated Procedures Musculoskeletal [id number]: Other Procedure See Report
--- NOTE | 2024-02-10 11:45 | DCINST_ITS ---
Discharge Instructions Diet Discharge Diet: No restrictions Activity Lifting Restrictions: no heavy lifting or gripping Keep extremity elevated above heart level: Operative Extremity Dressing / Incision Call your doctor if your incision/area has: Continuous Slow Oozing, Sudden Increased Bleeding, Increased Pain/ Swelling, Increased Redness, Foul Smelling Discharge and Swelling at the incision site Call your doctor if you observe: Fever of 101 or Higher and Coldness, Increased Pain Cleanse incision/area with: Do not get Incision Wet Follow Up Care Please Follow Up With: Kenji Mclaughlin MD When: 2 days Test Results: Test results from this visit will be discussed in further detail at your follow- up appointment, if applicable. Discharge Plan Admission Attending Provider: Kenji Mclaughlin Primary Care Provider: Bony Rivera Instructions Print Language: Bulgarian Discharge Orders/Prescriptions Prescriptions: No Action (DME) walker with wheels See Rx Instructions .Route .MEDSUPPLY Qty: 1 0RF Rx Instructions: As directed rosuvastatin 20 mg tablet 20 mg PO QDAY Qty: 90 3RF allopurinol 300 mg tablet 300 mg PO QDAY Qty: 90 3RF valacyclovir 1 gram tablet 1,000 mg PO DAILY loteprednol etabonate 0.2 % drops,suspension 1 drp RIGHT EYE TID (DME) disability placard See Rx Instructions .ROUTE .MEDSUPPLY Qty: 1 0RF Rx Instructions: As directed, Length of time: 5 years metformin 500 mg tablet extended release 24 hr 500 mg PO BID Qty: 180 3RF Rx Instructions: administer with evening meal azelastine 137 mcg (0.1 %) aerosol,spray 1 spray INTRANASAL BID Qty: 90 1RF Rx Instructions: administer into each nostril - escitalopram oxalate 20 mg tablet See Rx Instructions .ROUTE .COMPLEX Qty: 90 1RF Dose Instruction: TAKE 1 TABLET EVERY DAY Rx Instructions: TAKE 1 TABLET EVERY DAY Trelegy Ellipta 200-62.5-25 mcg blister with device 1 inh inhalation DAILY 90 Days Qty: 60 1RF Referrals / Follow Up: Bony Rivera DO [Primary Care Provider] - Kenji Mclaughlin MD [Med Staff - Active Staff] - Disposition Disposition (needs filled in before D/C Order can be placed): Home, Self Care
--- NOTE | 2024-02-10 11:46 | PCM.POST.ANE ---
Anesthesia: Postop Eval I Current Vital Signs Temperature: 98.4 F Pulse Rate: 78 Blood Pressure: 134/70 Respiratory Rate: 18 Pulse Ox: 92 Oxygen Delivery Method: Simple Mask Oxygen Flow Rate (L/min): 6 Assessment Airway patent: Yes Spontaneous unlabored respirations: Yes Mental status: Awake and Calm nausea: No Vomiting: No Anesthesia Complication: No Fluid Hydration Crystalloid volume administer (ml): 800 Total IV fluid infused: 800 Progress Note Anesthesia document: Postop Eval 1 completed: Yes
--- NOTE | 2024-02-10 16:45 | POSTOPAN2_ITS ---
Anesthesia Postop Eval I Sum Postop Eval Completion status Anesthesia document: Postop Eval 1 completed: Yes Anesthesia Postop Eval I Summary Anesthesia Postop Eval I Summary: Anesthesia Postop Eval I: Assessment Summary Airway patent Yes 02/10/24 11:52 CUSTOMER ACCOUNT [email or web address] Spontaneous unlabored Yes 02/10/24 11:52 CUSTOMER ACCOUNT [email or web address] respirations Mental status Awake,Calm 02/10/24 11:52 CUSTOMER ACCOUNT [email or web address] nausea No 02/10/24 11:52 CUSTOMER ACCOUNT [email or web address] Vomiting No 02/10/24 11:52 CUSTOMER ACCOUNT [email or web address] Anesthesia Postop Eval I: Fluid Summary Crystalloid volume administer 800 02/10/24 11:52 CUSTOMER ACCOUNT [email or web address] (ml) Colloids volume administered ( ml) Blood Product volume administered (ml) Total IV fluid infused 800 02/10/24 11:52 CUSTOMER ACCOUNT [email or web address] Anesthesia Postop Eval I: Summary Notes Anesthesia Complication No 02/10/24 11:52 CUSTOMER ACCOUNT [email or web address] Anesthesia Complication Comment: Post-operative progress note Anesthesia: Postop Eval II Evaluation Mental status: Awake and Calm Pain Level: 1 nausea: No Vomiting: No Complications Anesthesia Complication: No
--- NOTE | 2024-02-10 16:45 | PCM.POSTANE2 ---
Anesthesia Postop Eval I Sum Postop Eval Completion status Anesthesia document: Postop Eval 1 completed: Yes Anesthesia Postop Eval I Summary Anesthesia Postop Eval I Summary: Anesthesia Postop Eval I: Assessment Summary Airway patent Yes 02/10/24 11:52 [email or web address] Spontaneous unlabored Yes 02/10/24 11:52 MORNING [email or web address] respirations Mental status Awake,Calm 02/10/24 11:52 MORNING [email or web address] nausea No 02/10/24 11:52 MORNING [email or web address] Vomiting No 02/10/24 11:52 [email or web address] [email or web address] Anesthesia Postop Eval I: Fluid Summary Crystalloid volume administer 800 02/10/24 11:52 MORNING [email or web address] (ml) Colloids volume administered ( ml) Blood Product volume administered (ml) Total IV fluid infused 800 02/10/24 11:52 [email or web address] [email or web address] Anesthesia Postop Eval I: Summary Notes Anesthesia Complication No 02/10/24 11:52 [email or web address] [email or web address] Anesthesia Complication Comment: Post-operative progress note Anesthesia: Postop Eval II Evaluation Mental status: Awake and Calm Pain Level: 1 nausea: No Vomiting: No Complications Anesthesia Complication: No
== END 2024-02-10 13:05 | disposition home or self-care (01) ==
LOC: SDC 07:51 → AC 07:53
PROVIDERS: PCP Family Medicine; Referring Provider Orthopaedic Surgery Sports Medicine; Visit Provider Orthopaedic Surgery Sports Medicine
PROC: (CPT 29848; principal; 2024-02-10 09:15)
DX: G56.02 Carpal tunnel syndrome, left upper limb (principal); E11.9 Type 2 diabetes mellitus without complications; E78.00 Pure hypercholesterolemia, unspecified; M10.9 Gout, unspecified; J45.909 Unspecified asthma, uncomplicated; Z79.84 Long term (current) use of oral hypoglycemic drugs; Z79.899 Other long term (current) drug therapy; Z87.891 Personal history of nicotine dependence
CPT/HCPCS: 29848; 01810; 82962; J7120; J2405

== ENCOUNTER → 2024-04-29 | Outpatient (CLI) | payer MEDICARE, SELFPAY ==
--- NOTE | 2024-04-29 13:05 | RAD_ITS ---
INDICATION: constipation/no BM EXAMINATION/TECHNIQUE: X-RAY - Supine AP view. COMPARISON: None FINDINGS: BOWEL GAS PATTERN: Unremarkable. Moderate stool retention. CALCIFICATIONS: 2.1 cm hyperdense structure in the right upper quadrant. LOWER CHEST: Visualized lung bases are unremarkable. BONES AND SOFT TISSUES: No acute abnormality. RAD/Abdomen Single View IMPRESSION: 1. Moderate stool retention. 2. 2.1 cm hyperdense structure in the right upper quadrant which may represent a large gallstone or may represent hyperdense material within bowel. Electronically Signed: Anthony Ash DO at 1:45 EDT ,
== END | disposition home or self-care (01) ==
LOC: RAD 12:55
PROVIDERS: PCP Family Medicine; Referring Provider Nurse Practitioner; Visit Provider Nurse Practitioner
DX: K59.00 Constipation, unspecified (principal)
CPT/HCPCS: 74018

== ENCOUNTER → 2024-05-03 | Outpatient (CLI) | payer MEDICARE, SELFPAY ==
--- NOTE | 2024-05-03 15:10 | RAD_ITS ---
STUDY: X-RAY - ABDOMEN/PELVIS REASON FOR EXAM: Female, 83 years old. constipation TECHNIQUE: Single AP view of the abdomen / pelvis. COMPARISON: None. FINDINGS: Normal visualized lung bases. There is an unremarkable bowel gas pattern. The visualized liver, spleen and kidneys are grossly normal in size and morphology. 2 cm calcific opacity in the right upper quadrant suggestive of cholelithiasis. Mild levoscoliosis of the lower lumbar spine with degenerative disc disease. RAD/Abdomen Single View IMPRESSION: No bowel obstruction. Suspect cholelithiasis. Electronically Signed: Stpehen Guido MD at 11:42 EST ,
[2024-05-03 15:40] LABS: Absolute Lymphocyte Count 2.19 X10^3/uL (0.83-4.51); Absolute Neutrophil Count 4.1 X10^3/uL (2.0-7.7); Basophil# 0.06 X10^3/uL; Basophil% 0.8 % (0-1); Eosinophil# 0.15 X10^3/uL; Eosinophils% 2.1 % (0-5); Hematocrit 43.9 % (37-47); Hemoglobin 14.5 g/dL (12.0-15.0); Lymphocyte # 2.19 X10^3/ul (0.83-4.51); Lymphocyte % 30.8 % (19-41); Mean Corpuscular Hgb 33.9 pg (27.0-32.0); Mean Corpuscular Volume 102.6 fL (81-99); Mean Platelet Vol. 9.1 fl (6.2-12.0); Monocyte# 0.59 X10^3/uL; Monocyte% 8.3 % (0-10); NRBC Flagged by Analyzer 0 % (0-5); Neutrophil # 4.07 X10^3/uL (2.7-7.7); Neutrophil % 57.3 % (47-70); Platelet Count 268 K/mm3 (150-450); RBC Distribution Width CV 14.5 % (11.6-14.6); RBC Distribution Width SD 54.5 fl (35.1-43.9); Red Blood Count 4.28 M/mm3 (4.2-5.4); White Blood Count 7.1 K/mm3 (4.4-11.0)
[2024-05-03 16:16] LABS: ALB/GLOB Ratio 1.2 RATIO (0.9-2.4); AST(SGOT) 14 U/L (15-37); Alanine Aminotransfer ALT/SGPT 17 U/L (13-56); Albumin, Serum 4.1 g/dL (3.2-5.0); Alkaline Phosphatase 87 U/L (45-117); Anion Gap 7 (5-15); BUN 17 mg/dL (7-18); BUN/Creat Ratio 22.9 RATIO (10-20); Bilirubin, Direct 0.25 mg/dL (0.00-0.30); Calcium,Total 10.6 mg/dL (8.5-10.1); Chloride 107 mmol/L (98-107); Creatinine, Serum 0.74 mg/dL (0.55-1.02); EST Glomerular Filtration Rate 80 mL/min (>60); Est Glom Filt Rate - Afr Amer 96 mL/min (>60); Globulin 3.4 g/dL (2.2-4.2); Glucose 102 mg/dL (74-106); Potassium 4.6 mmol/L (3.5-5.1); Protein, Total 7.5 g/dL (6.4-8.2); Sodium Level 138 mmol/L (136-145)
== END | disposition home or self-care (01) ==
PROVIDERS: PCP Family Medicine; Referring Provider Student in an Organized Health Care Education/Training Program; Visit Provider Student in an Organized Health Care Education/Training Program
DX: K59.00 Constipation, unspecified (principal)
CPT/HCPCS: 36415; 74018; 80053; 82248; 85025

== ENCOUNTER → 2024-05-05 | Outpatient (CLI) | payer MEDICARE, SELFPAY ==
--- NOTE | 2024-05-05 12:15 | CT_ITS ---
ACR Level 3 findings have been noted. An addendum which confirms receipt of the report will follow. EXAM: CT ABDOMEN WITH INTRAVENOUS CONTRAST CLINICAL INDICATION: cholilithiasis? Foriegn body? TECHNIQUE: Helically acquired images were obtained of the abdomen with intravenous contrast. This CT exam was performed using one or more of the following dose reduction techniques: automated exposure control, adjustment of the mA and/or kV according to patient size, and/or use of iterative reconstruction technique. CONTRAST: IV 100mL Isovue-300 RADIATION DOSE: CTDIvol = 20.84 mGy, DLP = 553.12 mGy-cm. COMPARISON: No relevant prior studies available. FINDINGS: LOWER THORAX: Trace pericardial effusion. Normal heart size. The heart is not fully included. Suspected stents in right coronary artery. Minimal vascular crowding and increased linear and interstitial markings in the lung bases, no infiltrate. LIVER: Presumed cyst subcapsular left lobe of the liver, 1 cm. GALLBLADDER AND BILE DUCTS: There is a large stone in the proximal body of the gallbladder, 2.2 cm x 2.3 cm, surrounded by a small amount of fluid. The gallbladder is only mildly distended, AP diameter 2.3 cm. No gallbladder wall thickening or surrounding soft tissue stranding. The common duct is 7 mm, likely chronic. PANCREAS: Unremarkable. No focal cystic or solid mass. SPLEEN: Mildly prominent perisplenic vessels. ADRENALS: Unremarkable. No nodules. KIDNEYS AND URETERS: Exophytic simple-appearing 2.1 cm x 2 cm cyst at the upper pole of the right kidney. Normal renal size and position. No hydronephrosis. STOMACH AND BOWEL: Large amount of stool in most visualized portion of the colon, including splenic and hepatic flexures, most of the transverse colon, visualized portions of the ascending and descending colon. Oral contrast reached the right colon, no small bowel obstruction. Question of mildly thick-walled loops of jejunum from the left upper to the midabdomen. APPENDIX: The region of the appendix is not included. INTRAPERITONEAL SPACE: Unremarkable. No ascites or other fluid collection. No free air. BONES/JOINTS: Marked disc space narrowing and mild endplate sclerosis and small erosions of the opposing vertebral body endplates at T9-T10. Multiple vacuum discs. Marked disc space narrowing at L2-3, milder disc space narrowing and vacuum disc at multiple levels. Marked disc space narrowing and vacuum disc at L4-5 and roughly 8 mm anterolisthesis of L4 with respect to L5. Hypertrophic facet joints throughout much of the lumbar spine. Moderate apparent spinal stenosis at L4-5, AP diameter 5.3 mm. Ligamentum flavum hypertrophy contributes to narrowing. No suspicious lytic or blastic abnormality. SOFT TISSUES: See above. VASCULATURE: Moderate atherosclerotic calcification of aorta and proximal common iliac arteries. Heavily calcified origins of the renal arteries, the left appears significantly stenotic. Mild calcification of the origins of the celiac axis and SMA without high-grade stenosis. LYMPH NODES: No enlarged lymph nodes. CT/Abdomen WITH IV Contrast IMPRESSION: 1. Large gallstone in the proximal gallbladder body. No evidence of acute cholecystitis. Upper limits of normal common duct, likely chronic. 2. Prominent stool in much of the included colon. The pelvis is not included. Oral contrast reached the right colon. 3. Question of mild wall thickening of multiple jejunal loops may be due to early or mild enteritis or ischemia in the appropriate clinical setting. The major mesenteric vessels appear patent. No bowel pneumatosis or changes in the mesenteric fat. The pelvis is not included. 4. Advanced degenerative spine changes. Moderate L4-5 spinal stenosis and mild spondylolisthesis. Electronically Signed: Marissa Thompson MD at 2:35 EST ,
== END | disposition home or self-care (01) ==
LOC: CT 12:14
PROVIDERS: PCP Family Medicine; Referring Provider Student in an Organized Health Care Education/Training Program; Visit Provider Student in an Organized Health Care Education/Training Program
DX: R93.5 Abnormal findings on diagnostic imaging of other abdominal regions, including retroperitoneum (principal)
CPT/HCPCS: 74160; Q9967; A4216

== ENCOUNTER 2024-07-28 08:31 | Day surgery (SDC) | payer MEDICARE, SELFPAY ==
--- NOTE | 2024-07-26 17:21 | PAT.ANE_ITS ---
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 When Was Last Pacemaker Check QUESTION #4 FULL TEXT: You/Your Family Experience fever (hyperthermia) with Anesthesia Last Oral Intake Last Oral intake: Last Oral Intake NPO since Meds taken in AM with sips of water? Meds patient instructed to take am of surgery PONV PONV - water resource engineering specialist: PONV - water resource engineering specialist Female Yes 07/26/24 11:25 HX of Motion Sickness Yes 07/26/24 11:25 HX of N/V After Surgery No 07/26/24 11:25 Non-Smoker Yes 07/26/24 11:25 Duration of Surgery greater No 07/26/24 11:25 than 60 minutes Number of Risk Factors 3 07/26/24 11:25 PONV Score Moderate Risk 07/26/24 11:25 Height & Weight Height & Weight: Anesthesia: Height & Weight Height 5 ft 05/24/24 13:15 Respiratory Assessment Respiratory Assessment - water resource engineering specialist: Respiratory Tract Infection Hx - water resource engineering specialist Hx Respiratory Tract Infection No 07/26/24 11:25 STOP Sleep Apnea STOP Sleep Apnea - water resource engineering specialist: STOP Sleep Apnea - water resource engineering specialist Hx Hypertension No 07/26/24 11:25 Hx Sleep Apnea No 07/26/24 11:25 CPAP BIPAP Do you snore loudly (louder No 07/26/24 11:25 than talking or can be heard Do you often feel tired/ No 07/26/24 11:25 fatigued/ sleepy during daytime? Has anyone observed you stop No 07/26/24 11:25 breathing during sleep? STOP Results Negative 07/26/24 11:25 QUESTION #5 FULL TEXT : Do you snore loudly (louder than talking or can be heard through closed doors)? 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 Specify any problems Hx of Preganancy in last 3 No 07/26/24 11:25 Months Nurse Filling Out Transfusion VCHRISTIN 07/26/24 11:25 & Questions: Date: 07/26/24 07/26/24 11:25 Time: 11:07/26/24 11:25 Patient unable to answer at this time (ie. confused, unrespo /Reproduction History /Reproductive History - water resource engineering specialist: /Reproductive Hx- water resource engineering specialist Hx Now No 07/26/24 11:25 Gestational Age (in weeks): EDC: Hx Hx Para Hx Section SAB No 07/26/24 11:25 PFSH Medical History Chronic cough Former smoker Restless legs Shingles Ambulates with cane Non-smoker Wears glasses Post-menopausal Anxiety Diabetes Gout High cholesterol Former smoker Asthma Leg cramps Constipation Seasonal allergies Back pain Type 2 diabetes mellitus Hyperlipemia History of gout Arthritis Home Medications ?Medication ?Instructions ?Recorded ?Last Taken ?Type disability placard #1 ea 02/19/22 Unknown Rx walker with wheels #1 ea 05/13/22 Unknown Rx fluticasone fur. 200 mcg-umeclid 1 inh inhalation DAILY 3 months 03/31/24 Unknown Rx 62.5 mcg-vilant 25 mcg #60 ea inhalat.powder (Trelegy Ellipta) allopurinol 300 mg tablet 300 mg PO DAILY #90 TABLETS 04/06/24 Unknown Rx rosuvastatin 20 mg tablet 20 mg PO DAILY #90 TABLETS 04/06/24 Unknown Rx azelastine 137 mcg (0.1 %) nasal 1 spray intranasal BID #90 mL 06/09/24 Unknown Rx spray escitalopram oxalate 20 mg tablet See Rx Instructions .Route 06/09/24 Unknown Rx .COMPLEX #90 tabs carboxymethyl 0.5 %-glycerin 1 1 drp RIGHT EYE Q4H PRN dry eye(s) 07/26/24 Unknown History %-polysorb 80 0.5 %-PF eye dropperette (Refresh Digital PF) metformin 500 mg tablet,extended 500 mg PO DAILY 07/26/24 Unknown History release 24 hr Allergy/AdvReac Type Severity Reaction Status Date / Time aspirin Allergy Unknown unknown Verified 07/26/24 11:20 Family History Sister Cancer lung Seizures COPD (chronic obstructive pulmonary disease) Mother Breast cancer COPD (chronic obstructive pulmonary disease) Surgical History (Updated 07/26/24 @ 11:25 by Zoila Harley) History of carpal tunnel surgery of left wrist Hx of colonoscopy History of tubal ligation History of tonsillectomy History of eye surgery History of foot surgery tuberler elongate History of carpal tunnel release Social History Smoking Status: Former smoker alcohol intake: former substance use type: does not use what type of physical activity do you participate in: none Audit: Pertinent Findings Pertinent Findings EKG Perinent findings: January 12, 2015. Normal sinus rhythm. Nonspecific T wave abnormalities. July 22, 2021. On telemetry strip lead II and 5. Sinus rhythm Recommendation Anesthesia Recommendation Anesthesia recommendation: OPTIMIZED for anesthesia
[2024-07-28 09:09] VITALS: BP 113/76; PULSE 56; RESP 16; TEMP 36.8; O2SAT 100; BMI 25.0
[2024-07-28 09:39] LABS: Bedside Glucose 99 mg/dL (74-106)
--- NOTE | 2024-07-28 09:44 | PRE.ANES_ITS ---
ASA Classification* ASA Classification ASA Classification: 2 Assessment & Plan Anesthesia* Anesthesia Assessment Anesthesia Assessment: Discussed sedation and/or anesthesia options, risks, benefits, and alternatives with patient/parents/legal guardian/POA. Questions invited. The patient/parents/legal guardian/POA seems to understand and agrees to proceed with anesthesia plan. Reviewed the physical assessment, medical history, allergy history and patient home medications list prior to surgery/procedure/anesthetic and documented any changes. Performed airway and anesthesia risk assessments. Anesthesia Type Anesthesia Type: MAC History Source History Obtained from:: Patient and Chart Anesthesia Focused Assessment* Temperature: 98.3 F Pulse Rate: 56 Blood Pressure: 113/76 Respiratory Rate: 16 Pulse Ox: 100 Oxygen Delivery Method: Room Air Airway Assessment Mouth opens: >3 cm Mallampati Score: IV Teeth Condition: Upper (Patient has 2 permanent upper bridges.) Neck Range of motion (ROM): Limited ROM (Somewhat decreased extension) Focused Labs Anesthesia Preop lab: CBC WBC 7.1 K/mm3 (4.4-11.0) 05/03/24 14:48 05/03/24 RBC 4.28 M/mm3 (4.2-5.4) 05/03/24 14:48 05/03/24 Hgb 14.5 g/dL (12.0-15.0) 05/03/24 14:48 05/03/24 Hct 43.9 % (37-47) 05/03/24 14:48 05/03/24 Plt Count 268 K/mm3 (150-450) 05/03/24 14:48 05/03/24 CHEMISTRY Potassium 4.6 mmol/L (3.5-5.1) 05/03/24 14:48 05/03/24 Sodium 138 mmol/L (136-145) 05/03/24 14:48 05/03/24 BUN 17 mg/dL (7-18) 05/03/24 14:48 05/03/24 Creatinine 0.74 mg/dL (0.55-1.02) 05/03/24 14:48 05/03/24 Glucose 102 mg/dL (74-106) 05/03/24 14:48 05/03/24 POC Glucose 99 mg/dL (74-106) 07/28/24 09:07 07/28/24 COAG Pre-Assessment Diagnosis/Proposed Procedure Planned Operative Procedure(s): COLONOSCOPY Anesthesia History 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 When Was Last Pacemaker Check QUESTION #4 FULL TEXT: You/Your Family Experience fever (hyperthermia) with Anesthesia Last Oral Intake Last Oral intake: Last Oral Intake NPO since 21:00 07/28/24 09:09 Meds taken in AM with sips of No 07/28/24 09:09 water? Meds patient instructed to take am of surgery Any additional information?: Yes NPO since: 05:00 (Patient finished her prep at 5 AM) PONV PONV - property controller: PONV - property controller Female Yes 07/26/24 11:25 HX of Motion Sickness Yes 07/26/24 11:25 HX of N/V After Surgery No 07/26/24 11:25 Non-Smoker Yes 07/26/24 11:25 Duration of Surgery greater No 07/26/24 11:25 than 60 minutes Number of Risk Factors 3 07/26/24 11:25 PONV Score Moderate Risk 07/26/24 11:25 Height & Weight Height & Weight: Anesthesia: Height & Weight Height 5 ft 07/28/24 09:09 Weight: 58 kg 07/28/24 09:09 Body Mass Index (BMI) 25.0 07/28/24 09:09 Respiratory Assessment Respiratory Assessment - property controller: Respiratory Tract Infection Hx - property controller Hx Respiratory Tract Infection No 07/26/24 11:25 Any additional information?: Yes Hx Respiratory Tract Infection: Yes (Chronic cough from postnasal drip) STOP Sleep Apnea STOP Sleep Apnea - property controller: STOP Sleep Apnea - property controller Hx Hypertension No 07/26/24 11:25 Hx Sleep Apnea No 07/26/24 11:25 CPAP BIPAP Do you snore loudly (louder No 07/26/24 11:25 than talking or can be heard Do you often feel tired/ No 07/26/24 11:25 fatigued/ sleepy during daytime? Has anyone observed you stop No 07/26/24 11:25 breathing during sleep? STOP Results Negative 07/26/24 11:25 QUESTION #5 FULL TEXT : Do you snore loudly (louder than talking or can be heard through closed doors)? 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 Specify any problems Hx of Preganancy in last 3 No 07/26/24 11:25 Months Nurse Filling Out Transfusion VCHRISTIN 07/26/24 11:25 & Questions: Date: 07/26/24 07/26/24 11:25 Time: 11:26 07/26/24 11:25 Patient unable to answer at this time (ie. confused, unrespo /Reproduction History /Reproductive History - property controller: /Reproductive Hx- property controller Hx Now No 07/26/24 11:25 Gestational Age (in weeks): EDC: Hx Hx Para Hx Section SAB No 07/26/24 11:25 PFSH Medical History Chronic cough Former smoker Restless legs Shingles Ambulates with cane Non-smoker Wears glasses Post-menopausal Anxiety Diabetes Gout High cholesterol Former smoker Asthma Leg cramps Constipation Seasonal allergies Back pain Type 2 diabetes mellitus Hyperlipemia History of gout Arthritis Home Medications ?Medication ?Instructions ?Recorded ?Last Taken ?Type disability placard #1 ea 02/19/22 Unknown Rx walker with wheels #1 ea 05/13/22 Unknown Rx fluticasone fur. 200 mcg-umeclid 1 inh inhalation MICAELA Y 3 months 03/31/24 Unknown Rx 62.5 mcg-vilant 25 mcg #60 ea inhalat.powder (Trelegy Ellipta) allopurinol 300 mg tablet 300 mg PO DAILY #90 TABLETS 04/06/24 Unknown Rx rosuvastatin 20 mg tablet 20 mg PO DAILY #90 TABLETS 1 Unknown Rx azelastine 137 mcg (0.1 %) nasal 1 spray intranasal BI D #90 mL 06/09/24 Unknown Rx spray escitalopram oxalate 20 mg tablet See Rx Instructions .Route 06/09/24 Unknown Rx .COMPLEX #90 tabs carboxymethyl 0.5 %-glycerin 1 1 drp RIGHT EYE Q4H PRN dry eye(s) 07/26/24 Unknown History %-polysorb 80 0.5 %-PF eye dropperette (Refresh Digital PF) metformin 500 mg tablet,extended 500 mg PO DAILY 07/26 Unknown History release 24 hr Allergy/AdvReac Type Severity Reaction Status Date / Time aspirin Allergy Unknown unknown Verified 07/26/24 11:20 Family History Sister Cancer lung Seizures COPD (chronic obstructive pulmonary disease) Mother Breast cancer COPD (chronic obstructive pulmonary disease) Surgical History History of carpal tunnel surgery of left wrist Hx of colonoscopy History of tubal ligation History of tonsillectomy History of eye surgery History of foot surgery tuberler elongate History of carpal tunnel release Social History Smoking Status: Former smoker alcohol intake: former substance use type: does not use what type of physical activity do you participate in: none Review of Systems (Anesthesia) ROS Narrative System reviewed and no additional complaints, except as documented.
--- NOTE | 2024-07-28 09:45 | COLBX_PTH ---
PATIENT: GARFIELD MADRIGAL LOC: EN U#:[id number] AGE/SX: 83/F ROOM: RE07/28/[address]: Dr. Dez Giraldo DO : 1940 BED: DIS: 07/28/2024 SPEC #: [id number] RECD: 07/28/24 14:47 STATUS: GUERO RESabrina #: [id number] JACOB: 07/28/24 09:[address]: Dez Giraldo DEPT: SURGICAL PATHOLOGY RECD BY: Mariusz Del Valle ENTERED: 07/29/24 08:40 SP TYPE: COLON BX OTHR DR: Dr. Bony Rivera DO Tissues: Cecum, NOS Procedures: Surgery Specimen Level IV HEADER OPERATION: Colonoscopy with polypectomy PRE-OP DIAGNOSIS: Constipation TISSUE SUBMITTED: Cecum polyp MICROSCOPIC DIAGNOSIS Cecal polyp, polypectomy: Hyperplastic polyp. 08/01/2024 MICROSCOPIC DESCRIPTION Slides are reviewed. GROSS DESCRIPTION Received in fixative is one container labeled with the patient's name and designated Cecum polyp. The specimen consists of two irregular fragments of light brown soft tissue that in aggregate measure 0.7 x 0.3 x 0.1 cm. The specimen is totally submitted in one cassette. 07/29/2024 TC:1 CPT:61625
[2024-07-28 09:52] VITALS: BP 113/76; PULSE 56; RESP 16; TEMP 36.8; O2SAT 100
--- NOTE | 2024-07-28 09:56 | PCM.HP.STD ---
HPI - General General Date of Admission: 07/28/24 Date of Service: 07/28/24 Chief Complaint: Change in bowel habits HPI Narrative GARFIELD MADRIGAL is a 83 F who presents Chief Complaint: Constipation Details: GARFIELD MADRIGAL is a 83 F who presents to endoscopy today to evaluate change in bowel habits. Colonoscopy .02.17; - Diverticulosis in the recto-sigmoid colon, in the sigmoid colon and in the descending colon. There was no evidence of diverticular bleeding. - Seven 1 to 2 mm polyps (adenomatous) in the rectum, in the descending colon, in the transverse colon, at the hepatic flexure, in the ascending colon, in the cecum and at the appendiceal orifice, removed with a hot snare. Resected and retrieved. - Congested mucosa at the hepatic flexure. Biopsied. - Hemorrhoids found on perianal exam. - The examination was otherwise normal on direct and retroflexion views. OV 11.5.24 Pt has been having severe constipation over the past month. The last time she had a full bowel movement was over 2 weeks ago. On April 23 she had a very little amount of liquid stool and nothing since then. She has been taking miralax and doing glycerin suppositories. Her PCP ordered a KUB which showed a 2 cm hyperdensity representing either a large gallstone or foreign body within the bowel or stomach. She has been eating less lately but denies n/v or abdominal pain. She feels well overall but is concerned with the lack of bowel movements. KUB 11.1.24; 1. Moderate stool retention. 2. 2.1 cm hyperdense structure in the right upper quadrant which may represent a large gallstone or may represent hyperdense material within bowel. [facility] Medical History Chronic cough Former smoker Restless legs Shingles Ambulates with cane Non-smoker Wears glasses Post-menopausal Anxiety Diabetes Gout High cholesterol Former smoker Asthma Leg cramps Constipation Seasonal allergies Back pain Type 2 diabetes mellitus Hyperlipemia History of gout Arthritis Home Medications ?Medication ?Instructions ?Recorded ?Last Taken ?Type disability placard #1 ea 02/19/22 Unknown Rx walker with wheels #1 ea 05/13/22 Unknown Rx fluticasone fur. 200 mcg-umeclid 1 inh inhalation DAILY 3 months 03/31/24 Unknown Rx 62.5 mcg-vilant 25 mcg #60 ea inhalat.powder (Trelegy Ellipta) allopurinol 300 mg tablet 300 mg PO DAILY #90 TABLETS 04/06/24 Unknown Rx rosuvastatin 20 mg tablet 20 mg PO DAILY #90 TABLETS 04/06/24 Unknown Rx azelastine 137 mcg (0.1 %) nasal 1 spray intranasal BID #90 mL 06/09/24 Unknown Rx spray escitalopram oxalate 20 mg tablet See Rx Instructions .Route 06/09/24 Unknown Rx .COMPLEX #90 tabs carboxymethyl 0.5 %-glycerin 1 1 drp RIGHT EYE Q4H PRN dry eye(s) 07/26/24 Unknown History %-polysorb 80 0.5 %-PF eye dropperette (Refresh Digital PF) metformin 500 mg tablet,extended 500 mg PO DAILY 07/26/24 Unknown History release 24 hr Allergy/AdvReac Type Severity Reaction Status Date / Time aspirin Allergy Unknown unknown Verified 07/26/24 11:20 Family History Sister Cancer lung Seizures COPD (chronic obstructive pulmonary disease) Mother Breast cancer COPD (chronic obstructive pulmonary disease) Surgical History History of carpal tunnel surgery of left wrist Hx of colonoscopy History of tubal ligation History of tonsillectomy History of eye surgery History of foot surgery tuberler elongate History of carpal tunnel release Social History Smoking Status: Former smoker alcohol intake: former substance use type: does not use what type of physical activity do you participate in: none ROS Constitutional Constitutional: Denies fatigue, fever(s), poor appetite, weight gain or weight loss Gastrointestinal Gastrointestinal: Denies belching, bloating, change in bowel habits, change in stool character, chewing difficulty, coffee ground emesis, constipation, cramping, diarrhea, dyspepsia, dysphagia, early satiety, excessive flatus, fecal incontinence, heartburn, hematemesis, hematochezia, hemorrhoids, loose stools, melena, nausea, odynophagia, rectal bleeding, tenesmus, vomiting or weight changes Vital Signs Vital Signs Vital Signs: 07/28/24 09:09 07/28/24 09:09 07/28/24 09:52 Temperature 98.3 F 98.3 F Temperature Source Temporal Pulse Rate 56 L 56 L Respiratory Rate 16 16 Respiratory Pattern Normal Blood Pressure 113/76 113/76 Blood Pressure Mean 88 Blood Pressure Source Monitor Blood Pressure Position Semi-Fowlers Blood Pressure Location Left Arm Pulse Ox 100 100 Oxygen Delivery Method Room Air Room Air Weight Weight: 127 lb 13.89 oz Body Mass Index (BMI) 25.0 Physical Exam Const alert, oriented x3, no apparent distress and healthy appearing General Appearance: cooperative GI normal to inspection, nondistended, normoactive bowel sounds, soft to palpation, non-tender and non-distended Percussion: normal to percussion Rectal Exam: deferred Results Lab / Micro Data Labs: Laboratory Results - last 24 hr 07/28/24 09:07: POC Glucose 99 Assessment & Plan Assessment/Plan (1) Constipation: PLAN: Assessment and Plan Assessment and Plan (1) Constipation: Status: Acute Plan: This is an established pt here today for concern of sever constipation. Pt last bowel movement was April 23 2024 which was just a small amount of liquid. She had an x-ray which showed a 2 cm hyperdensity either in the bowel or within the stomach. Discussed case with Dr. Giraldo he recommended a CT as soon as possible. I ordered blood work and will order a CT abdomen/pelvis. I recommened pt do a fleet enema -CT abdomen/pelvis -Blood work -fleet enema Orders: Orders Abdomen Single View Today K59.00 - Constipation, unspecified CBC W/Diff, Automated Today K59.00 - Constipation, unspecified Comprehensive Metabolic Profil Today K59.00 - Constipation, unspecified Bilirubin, Direct Today K59.00 - Constipation, unspecified
[2024-07-28 10:40] VITALS: BP 106/60; BP 113/76; PULSE 55; RESP 16; TEMP 36.1; O2SAT 94
--- NOTE | 2024-07-28 10:41 | OP.CCLET_ITS ---
07/28/2024 Bony Rivera Re : Colonoscopy procedure for Daly Arellano Dear Dr. Rivera This procedure was performed on June. My impressions and recommendations are as follows: Impressions : - Diverticulosis in the recto-sigmoid colon, in the sigmoid colon and in the transverse colon. - One 5 mm polyp in the cecum, removed with a jumbo cold forceps. Resected and retrieved. Recommendations : - Repeat colonoscopy in 5 years for surveillance. - Continue present medications. My findings are described in the full procedure note, which is enclosed. If I can be of further assistance, please feel free to contact me at . Sincerely, Dez Giraldo, 07/28/2024 10:41:11 AM This report has been signed electronically.
--- NOTE | 2024-07-28 10:41 | OP.COLON_ITS ---
Patient Name: Daly Arellano Procedure Date: 07/28/2024 9:58 AM Date of : 1940 Age: 83 Procedure: Colonoscopy Indications: Screening for colorectal malignant neoplasm Providers: Dez Giraldo DO Referring MD: Bony Rivera Medicines: Monitored Anesthesia Care Patient Profile: This is an 83 year old female. Refer to note in patient chart for documentation of history and physical. Last Colonoscopy: several years ago. Complications: No immediate complications. Procedure: Pre-Anesthesia Assessment: - Prior to the procedure, a History and Physical was performed, and patient medications and allergies were reviewed. The patient is competent. The risks and benefits of the procedure and the sedation options and risks were discussed with the patient. All questions were answered and informed consent was obtained. Patient identification and proposed procedure were verified by the physician in the pre-procedure area. Mental Status Examination: alert and oriented. Airway Examination: normal oropharyngeal airway and neck mobility. Respiratory Examination: clear to auscultation. CV Examination: normal. Prophylactic Antibiotics: The patient does not require prophylactic antibiotics. Prior Anticoagulants: The patient has taken no anticoagulant or antiplatelet agents except for NSAID medication. ASA Grade Assessment: II - A patient with mild systemic disease. After reviewing the risks and benefits, the patient was deemed in satisfactory condition to undergo the procedure. The anesthesia plan was to use monitored anesthesia care (MAC). Immediately prior to administration of medications, the patient was re-assessed for adequacy to receive sedatives. The heart rate, respiratory rate, oxygen saturations, blood pressure, adequacy of pulmonary ventilation, and response to care were monitored throughout the procedure. The physical status of the patient was re-assessed after the procedure. After I obtained informed consent, the scope was passed under direct vision. Throughout the procedure, the patient's blood pressure, pulse, and oxygen saturations were monitored continuously. The Colonoscope was introduced through the anus and advanced to the cecum, identified by appendiceal orifice and ileocecal valve. The colonoscopy was performed without difficulty. The patient tolerated the procedure well. The quality of the bowel preparation was adequate. The ileocecal valve, appendiceal orifice, and rectum were photographed. Scope In: 10:09:52 AM Scope Withdrawal Time 0 hours 8 minutes 2 seconds Scope Out: 10:34:27 AM Total Procedure Duration Time 0 hours 24 minutes 35 seconds Findings: The perianal and digital rectal examinations were normal. Multiple small-mouthed diverticula were found in the recto-sigmoid colon, sigmoid colon and transverse colon. A 5 mm polyp was found in the cecum. The polyp was sessile. The polyp was removed with a jumbo cold forceps. Resection and retrieval were complete. Verification of patient identification for the specimen was done. Estimated blood loss was minimal. Impression: - Diverticulosis in the recto-sigmoid colon, in the sigmoid colon and in the transverse colon. - One 5 mm polyp in the cecum, removed with a jumbo cold forceps. Resected and retrieved. Recommendation: - Repeat colonoscopy in 5 years for surveillance. - Continue present medications. Procedure Code(s): --- Professional --- 32993, Colonoscopy, flexible; with biopsy, single or multiple CPT copyright 2021 [employer]. All rights reserved. The codes documented in this report are preliminary and upon waste water worker review may be revised to meet current compliance requirements. Dez Giraldo DO 07/28/2024 10:41:11 AM This report has been signed electronically. Number of Addenda: 0 Note Initiated On: 07/28/2024 9:58 AM
--- NOTE | 2024-07-28 10:44 | PCM.POST.ANE ---
Anesthesia: Postop Eval I Current Vital Signs Temperature: 97 F Pulse Rate: 60 Blood Pressure: 106/60 Respiratory Rate: 16 Pulse Ox: 96 Oxygen Delivery Method: Room Air Assessment Airway patent: Yes Spontaneous unlabored respirations: Yes Mental status: Awake and Calm nausea: No Vomiting: No Anesthesia Complication: No Fluid Hydration Crystalloid volume administer (ml): 40 Total IV fluid infused: 40 Progress Note Anesthesia document: Postop Eval 1 completed: Yes
[2024-07-28 10:45] VITALS: BP 106/60; BP 113/76; BP 119/58; PULSE 54; PULSE 60; RESP 16; TEMP 36.1; O2SAT 95; O2SAT 96
[2024-07-28 10:52] VITALS: BP 107/61; BP 113/76; PULSE 56; RESP 16; TEMP 36.3; O2SAT 95
[2024-07-28 11:00] VITALS: BP 113/76
--- NOTE | 2024-07-28 11:46 | PCM.POSTANE2 ---
Anesthesia Postop Eval I Sum Postop Eval Completion status Anesthesia document: Postop Eval 1 completed: Yes Anesthesia Postop Eval I Summary Anesthesia Postop Eval I Summary: Anesthesia Postop Eval I: Assessment Summary Airway patent Yes 07/28/24 10:45 [email or web address] Spontaneous unlabored Yes 07/28/24 10:45 [email or web address] respirations Mental status Awake,Calm 07/28/24 10:45 [email or web address] nausea No 07/28/24 10:45 [email or web address] Vomiting No 07/28/24 10:45 [email or web address] Anesthesia Postop Eval I: Fluid Summary Crystalloid volume administer 40 07/28/24 10:45 [email or web address] (ml) Colloids volume administered ( ml) Blood Product volume administered (ml) Total IV fluid infused 40 07/28/24 10:45 [email or web address] Anesthesia Postop Eval I: Summary Notes Anesthesia Complication No 07/28/24 10:45 [email or web address] Anesthesia Complication Comment: Post-operative progress note Anesthesia: Postop Eval II Evaluation Mental status: Awake and Calm Pain Level: 0 nausea: No Vomiting: No Complications Anesthesia Complication: No
== END 2024-07-28 11:16 | disposition home or self-care (01) ==
PROVIDERS: PCP Family Medicine; Referring Provider Family Medicine; Visit Provider Internal Medicine Gastroenterology
PROC: 0DJD8ZZ Inspection of Lower Intestinal Tract, Via Natural or Artificial Opening Endoscopic (ICD-10-PCS; CPT 45378; principal; 2024-07-28 09:40)
DX: K59.00 Constipation, unspecified (principal); E11.9 Type 2 diabetes mellitus without complications; K57.30 Diverticulosis of large intestine without perforation or abscess without bleeding; Z79.84 Long term (current) use of oral hypoglycemic drugs; Z87.891 Personal history of nicotine dependence; E78.00 Pure hypercholesterolemia, unspecified; M10.9 Gout, unspecified; J45.909 Unspecified asthma, uncomplicated; Z79.899 Other long term (current) drug therapy; Z79.51 Long term (current) use of inhaled steroids; F41.9 Anxiety disorder, unspecified; Z98.51 Tubal ligation status; D12.0 Benign neoplasm of cecum
CPT/HCPCS: 45380; 82962; 88305; A4216; J2405

== ENCOUNTER → 2025-03-15 | Outpatient (CLI) | payer MEDICARE, SELFPAY ==
[2025-03-15 15:24] LABS: Hematocrit 44.1 % (37-47); Hemoglobin 14.3 g/dL (12.0-15.0); Immature Granulocytes Count 0.030 X10^3/uL (0.0-0.0); Mean Corp Hgb Conc 32.4 g/dL (32-36); Mean Corpuscular Volume 97.4 fL (81-99); Mean Platelet Vol. 9.2 fl (6.2-12.0); NRBC Flagged by Analyzer 0 % (0-5); Platelet Count 264 K/mm3 (150-450); RBC Distribution Width CV 14.0 % (11.6-14.6); RBC Distribution Width SD 50.4 fl (35.1-43.9); Red Blood Count 4.53 M/mm3 (4.2-5.4); White Blood Count 7.0 K/mm3 (4.4-11.0)
[2025-03-15 16:31] LABS: AST(SGOT) 19 U/L (<=31); Alanine Aminotransfer ALT/SGPT 10 U/L (<=34); Albumin, Serum 4.4 g/dL (3.4-4.8); Alkaline Phosphatase 104 U/L (35-104); Anion Gap 16 (5-15); BUN 16 mg/dL (4-19); BUN/Creat Ratio 23.6 RATIO (10-20); Calcium,Total 10.3 mg/dL (7.6-11.0); Carbon Dioxide 20.5 mmol/L (21.0-32.0); Chloride 103 mmol/L (98-108); Globulin 2.9 g/dL (2.2-4.2); Glucose 107 mg/dL (70-99); Potassium 4.3 mmol/L (3.3-5.1)
== END | disposition home or self-care (01) ==
LOC: BIMLAB 13:46
PROVIDERS: PCP Family Medicine; Referring Provider Family Medicine; Visit Provider Family Medicine
DX: J20.9 Acute bronchitis, unspecified (principal); J44.0 Chronic obstructive pulmonary disease with (acute) lower respiratory infection; E11.9 Type 2 diabetes mellitus without complications
CPT/HCPCS: 36415; 80053; 85025